=== PATIENT | female | born 1985 | race Caucasian/White ===

== ENCOUNTER → 2017-08-01 | Outpatient (CLI) | payer MEDICAID ==
[2017-08-01 15:37] VITALS: BP 115/91; PULSE 90; RESP 16; TEMP 98.1; BMI 33.3
--- NOTE | 2017-08-01 16:23 | P.HPBAR ---
Bariatric H&P - History & Physicial H&P Date: 08/01/17 History & Physicial: Visit/CC: talk about band removal Patient initial contact: Initial weight: 102.058 kg Initial weight in pounds: 225.00 Height: 5 ft 3 in Initial BMI: 39.8 Last weight: Current weight: 85.417 kg Current weight in pounds: 188.00 Current BMI: 33.3 [place] body weight (based on NIH guidelines): 52.163 kg Excess body weight loss: 33.6% The patient is a 31 year-old F who presents for Bariatric Assessment. Patient seen in the office for the first time today. She actually had her lap band placed by Dr. Hilario in 2008. Postoperatively she developed a pulmonary embolism. 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 She was on Coumadin for 6 months following that. She did well following that. 3-4 years ago she was having left upper quadrant and left shoulder pain. CAT scan showed her lap band tubing to be somewhat atypical in location beneath the left hemidiaphragm. She then underwent a laparoscopic revision with repositioning of her lap band tubing by Dr. Salter. That did resolve her abdominal pain. 2 years ago or so she started noticing diminishing restriction. She believes she has a 10 mL band. She was told she had 9.6 mL in her band. Workup at that time included an upper endoscopy which she states was normal. This was performed by Dr. Hilario back at [facility]. Her last visit at [facility] approximately one year ago. Her preoperative weight prior to lap band placement was 250. She says that she was down around 142-3 years ago. Currently her weight is around 195. Today's weight 188. She feels very little restriction at this point. She has bad reflux at this point. No vomiting. Denies night cough. Able to eat most things. No abdominal pain. She takes Zantac 150 twice a day currently. No recent esophagram. Review of Systems The patient denies any acute changes in vision or hearing, no dysphagia or odynophagia, no chest pain or shortness of breath, no dysuria or hematuria, no headache, no runny nose, no rectal bleeding or melena, no unexplained weight loss Past Medical History Past Medical History: No Reported History, Blood Disorder, Pulmonary Embolus (PE ) Additional Past Medical History / Comment(s): 2008 following lap band surgery MTHFR History of Any Multi-Drug Resistant Organisms: None Reported Past Surgical History: Bariatric Surgery Additional Past Surgical History / Comment(s): lap band surgery 2009 revision of port 2011 Past Anesthesia/Blood Transfusion Reactions: No Reported Reaction Past Psychological History: No Psychological Hx Reported Smoking Status: Never smoker Past Alcohol Use History: None Reported Past Drug Use History: None Reported Surgical - Exam Vital Signs Temp Pulse Resp BP 98.1 F 90 16 115/91 08/01/17 15:33 08/01/17 15:33 08/01/17 15:33 08/01/17 15:33 Physical exam: General: Well-developed, well-nourished HEENT: Normocephalic, sclerae nonicteric Abdomen: Nontender, nondistended Extremities: No edema Neuro: Alert and oriented Bariatric Assessment & Plan (1) Obesity (BMI 30-39.9) Narrative/Plan: Patient with complaints of worsening reflux and diminished restriction post lap band. We'll check esophagogram at this time. Patient considering band conversion. We spent a lot of time today discussing the options of band removal , band conversion to either gastric bypass or sleeve gastrectomy, or reinitiating band fills. Obviously this decision will be affected by the upcoming esophagogram. We'll see the patient back in the office in 1-2 weeks to review that study and make further plans. Status: Acute Bariatric Checklist Checklist: Plan: Checklist: EGD: 1. Hiatal hernia: 2. H. Pylori: HgbA1c: Vitamin D: Smoking: Never smoker Primary care physician referral: Psychiatry clearance: Cardiology clearance: Sleep study: Diet journal: VTE risk score: VTE risk level: Rehab needs at discharge:
== END | disposition home or self-care (01) ==
LOC: BARWHC3 15:23
PROVIDERS: ATTEND Surgery
DX: Z48.815 Encounter for surgical aftercare following surgery on the digestive system (principal); E66.9 Obesity, unspecified; K21.9 Gastro-esophageal reflux disease without esophagitis; Z98.84 Bariatric surgery status; Z79.899 Other long term (current) drug therapy; Z68.33 Body mass index [BMI] 33.0-33.9, adult
CPT/HCPCS: 99201

== ENCOUNTER → 2017-08-14 | Outpatient (CLI) | payer MEDICAID ==
--- NOTE | 2017-08-14 10:11 | FL ---
EXAMINATION TYPE: FL barium swallow DATE OF EXAM: 08/14/2017 LAP BANDING LIMITED ESOPHAGRAM: CLINICAL HISTORY: History of lap band placed 10 years ago with dysphagia per order. Patient wants la p band removed. TECHNIQUE: Limited esophagram is performed utilizing 2-3 oz of barium. A total of 30 seconds of fluo roscopic time was utilized during procedure. Preprocedure imaging was performed. 8 spot images were s aved during procedure. COMPARISON: None. FINDINGS: Pre-procedure prosthetic aides teacher image shows lap band in satisfactory position in proximal stomach ju st below the gastroesophageal junction. Phi angle is elevated from normal range. No priors are avail able for comparison. The patient then drank oral contrast. There is good flow of contrast along the course of the esophagu s. There is good flow of contrast along the course of the lap band, there is no evidence of contrast extravasation to suggest leak. There is no lap band slippage appreciated. IMPRESSION: No evidence of lap band slippage or significant obstruction.
== END | disposition home or self-care (01) ==
LOC: RADFLWHC 08:44
PROVIDERS: ATTEND Surgery
DX: R13.10 Dysphagia, unspecified (principal); Z98.84 Bariatric surgery status
CPT/HCPCS: 74220

== ENCOUNTER → 2017-08-22 | Outpatient (CLI) | payer MEDICAID ==
--- NOTE | 2017-08-22 13:35 | P.BASOAP ---
Subjective Progress Note Date: 08/22/17 Principal diagnosis: Morbid obesity Patient seen back in the office today. She had her barium swallowormed last week. That study was normal. Still with some reflux symptoms intermittently. Options discussed. We'll proceed with band adjustment. Objective - Exam Abdomen: Soft, nontender, nondistended Assessment/Plan (1) Obesity (BMI 30-39.9) Narrative/Plan: We'll access port to evaluate whether the patient has any malfunction of the lap band system. The patient's lap band port was palpated. The site was aseptically prepped. The Ames needle was advanced into the port. Aspiration took place. At least 6 mL was present within the port. I chose not to empty the port any further given the risk of edema with emptying the band and then refilling. A total of 0.5 ml of fluid was added for anticipated volume of 10.1 mL. Pressure was held and a sterile dressing was applied. Follow-up 1 month Plan: Date: Initial Weight: 102.058 kg Initial BMI: Current Weight: Current BMI: Type of Surgery: Total Volume in Band: Previous Volume: Volume Removed: Volume Added: Band Size:
[2017-08-22 13:40] VITALS: BMI 31.8
== END | disposition home or self-care (01) ==
LOC: BARWHC3 13:11
PROVIDERS: ATTEND Surgery
DX: E66.01 Morbid (severe) obesity due to excess calories (principal); K21.9 Gastro-esophageal reflux disease without esophagitis; Z68.30 Body mass index [BMI] 30.0-30.9, adult
CPT/HCPCS: 99212

== ENCOUNTER → 2018-02-09 | Outpatient (CLI) | payer MEDICAID ==
--- NOTE | 2018-02-09 10:44 | P.BASOAP ---
Subjective Progress Note Date: 02/09/18 Principal diagnosis: Morbid obesity Patient here today to have her band adjusted. She feels her band is too tight for solid foods. She would like the 0.5 mL removed that was placed in August of this year. Currently has a total of 10.1 mL. No vomiting. Objective - Exam Abdomen: Soft, nontender, nondistended Assessment/Plan (1) Obesity (BMI 30-39.9) Narrative/Plan: Will loosen the patient's plan at this time.The patient's lap band port was palpated. The site was aseptically prepped. 1% lidocaine was infiltrated into the subcutaneous tissues through a diabetic syringe. The Ames needle was advanced into the port. Aspiration took place. A total of 0.5 ml of fluid was evacuated. Pressure was held and a sterile dressing was applied. Plan: Date: Initial Weight: 102.058 kg Initial BMI: Current Weight: Current BMI: Type of Surgery: Total Volume in Band: 10.1 Previous Volume: Volume Removed: Volume Added: Band Size:
[2018-02-09 11:22] VITALS: BP 128/86; PULSE 96; RESP 15; TEMP 98.3; BMI 32.8
== END | disposition home or self-care (01) ==
LOC: BARWHC3 09:57
PROVIDERS: ATTEND Surgery
DX: Z46.51 Encounter for fitting and adjustment of gastric lap band (principal); E66.01 Morbid (severe) obesity due to excess calories; Z68.30 Body mass index [BMI] 30.0-30.9, adult; Z98.84 Bariatric surgery status
CPT/HCPCS: 99212

== ENCOUNTER → 2018-05-25 | Outpatient (CLI) | payer MEDICAID ==
[2018-05-25 08:56] LABS: Basophils % (A) 1 %; Eosinophils # (A) 0.1 k/uL (0-0.7); Eosinophils % (A) 2 %; HCT 41.6 % (34.0-46.0); HGB 13.4 gm/dL (11.4-16.0); Lymphocytes # (A) 1.6 k/uL (1.0-4.8); Lymphocytes % (A) 38 %; MCH 31.2 pg (25.0-35.0); MCHC 32.3 g/dL (31.0-37.0); MCV 96.9 fL (80.0-100.0); Mean Platelet Volume 6.8; Monocytes # (A) 0.3 k/uL (0-1.0); Monocytes % (A) 7 %; Neutrophils # (A) 2.1 k/uL (1.3-7.7); Neutrophils % (A) 51 %; Platelet Count 292 k/uL (150-450); RDW 12.2 % (11.5-15.5); WBC 4.2 k/uL (3.8-10.6)
[2018-05-25 16:24] LABS: Albumin 4.4 g/dL (3.80-4.90); Albumin/Globulin Ratio 2.59 (1.20-2.10); Anion Gap 5.2 mmol/L (4.00-12.00); Carbon Dioxide 27.8 mmol/L (21.6-31.8); Globulin 1.7 g/dL (2.1-3.7); LDL Cholesterol,Calculated 79.2 mg/dL (0.0-131.0); Potassium 4.3 mmol/L (3.5-5.5); Total Bilirubin 0.8 mg/dL (0.2-1.2); Total Protein 6.1 g/dL (6.2-8.2); VLDL Calculation 10.8 mg/dL (5.00-40.00)
[2018-05-25 16:32] LABS: T4, Free (Free Thyroxine) 1.3 ng/dL (0.80-1.80)
== END | disposition home or self-care (01) ==
LOC: LABWHC1 08:25
PROVIDERS: ATTEND Nurse Practitioner Family
DX: Z00.00 Encounter for general adult medical examination without abnormal findings (principal); E55.9 Vitamin D deficiency, unspecified
CPT/HCPCS: 36415; 80053; 80061; 82306; 82607; 84439; 84443; 85025

== ENCOUNTER → 2018-09-14 | Outpatient (CLI) | payer MEDICAID ==
[2018-09-14 10:43] VITALS: BP 123/91; PULSE 112; TEMP 98.3; BMI 35.2
--- NOTE | 2018-09-14 11:51 | P.HPBAR ---
Bariatric H&P - History & Physicial H&P Date: 09/14/18 History & Physicial: Visit/CC: initial consult Patient initial contact: Initial weight: 102.058 kg Initial weight in pounds: 225.00 Height: 5 ft 6 in Initial BMI: 36.3 Last weight: Current weight: 98.883 kg Current weight in pounds: 218.00 Current BMI: 35.2 [place] body weight (based on NIH guidelines): 58.967 kg Excess body weight loss: 7.3% The patient is a 32 year-old F who presents for Bariatric Assessment. Patient presents with history of adjustable gastric band. Highest weight of 250 pounds. She reports developing intolerance to band adjustments. Weight currently stable at 210. She does reports gastroesophageal reflux disease where she needs chronic in essence as well. Recommend full bariatric bariatric metabolic panel. Also recommend esophagram upper endoscopy for severe gastroparesis after reflux disease. Alternatives including sleeve and bite gastric bypass described. Patient is at increased risk for leaks and complications secondary to previous history of adjustable gastric band including intolerance. On exam, abdomen soft nontender. No erythema along port site. Recommend continued my fitness PAl and caloric including exercise assessment. Past Medical History Past Medical History: No Reported History, Blood Disorder, Pulmonary Embolus (PE) Additional Past Medical History / Comment(s): 2009 following lap band surgery MTHFR History of Any Multi-Drug Resistant Organisms: None Reported Past Surgical History: Bariatric Surgery Additional Past Surgical History / Comment(s): lap band surgery 2008 revision of port 2011 Past Anesthesia/Blood Transfusion Reactions: No Reported Reaction Past Psychological History: No Psychological Hx Reported Smoking Status: Never smoker Past Alcohol Use History: None Reported Past Drug Use History: None Reported Surgical - Exam Vital Signs Temp Pulse BP 98.3 F 112 H 123/91 09/14/18 10:40 09/14/18 10:40 09/14/18 10:40 Bariatric Checklist Checklist: Plan: Checklist: EGD: 1. Hiatal hernia: 2. H. Pylori: HgbA1c: Vitamin D: Smoking: Never smoker Primary care physician referral: Linus Harding Psychiatry clearance: Cardiology clearance: Sleep study: Diet journal: VTE risk score: VTE risk level: Rehab needs at discharge:
== END ==
LOC: BARWHC3 09:56
PROVIDERS: ATTEND Surgery Plastic and Reconstructive Surgery
DX: Z48.815 Encounter for surgical aftercare following surgery on the digestive system (principal); K21.9 Gastro-esophageal reflux disease without esophagitis; Z98.84 Bariatric surgery status
CPT/HCPCS: 99211

== ENCOUNTER → 2018-09-27 | Outpatient (CLI) | payer MEDICAID ==
--- NOTE | 2018-09-27 12:41 | FL ---
EXAMINATION TYPE: FL barium swallow DATE OF EXAM: 09/27/2018 CLINICAL HISTORY: Lap band placement. Gastroesophageal reflux. TECHNIQUE: Single contrast esophagram was performed utilizing thin barium only. 1.14 minutes of fluor oscopy time was utilized with 33 images saved. COMPARISON: None. FINDINGS: The lap band is in satisfactory position in proximal stomach just below the gastroesophage al junction. The patient then drank oral contrast. There is good flow of contrast along the course of the esophagus. There is good flow of contrast along the course of the lap band, there is no evidenc e of contrast extravasation to suggest leak. There is no significant gastric prolapse appreciated. M ild gastroesophageal reflux to the level of distal third of the esophagus was seen on supine imaging. No hiatal hernia. IMPRESSION: 1. No evidence of gastric lap band prolapse or obstruction. 2. Mild gastroesophageal reflux in the gravity independent position.
== END | disposition home or self-care (01) ==
LOC: RADFLWHC 11:18
PROVIDERS: ATTEND Surgery Plastic and Reconstructive Surgery
DX: K21.9 Gastro-esophageal reflux disease without esophagitis (principal)
CPT/HCPCS: 74220

== ENCOUNTER → 2018-10-31 | Outpatient (CLI) | payer MEDICAID ==
[2018-10-31 11:18] LABS: HGB 13.6 gm/dL (11.4-16.0); MCH 30.9 pg (25.0-35.0); MCHC 32.4 g/dL (31.0-37.0); MCV 95.1 fL (80.0-100.0); Mean Platelet Volume 6.7; Platelet Count 308 k/uL (150-450); RBC 4.42 m/uL (3.80-5.40); RDW 12.4 % (11.5-15.5)
[2018-10-31 11:36] LABS: Partial Thromboplastin Time 24.4 sec (22.0-30.0); Prothrombin Time 10.3 sec (9.0-12.0)
[2018-10-31 16:29] LABS: Iron Saturation 47.08 (12.00-45.00)
[2018-10-31 16:37] LABS: Vitamin D 25 Hydroxy 18.2 ng/mL (30.0-100.0)
[2018-10-31 17:00] LABS: Albumin 4.4 g/dL (3.80-4.90); Albumin/Globulin Ratio 2.32 (1.60-3.17); Anion Gap 7.1 mmol/L (4.00-12.00); Carbon Dioxide 26.9 mmol/L (21.6-31.8); Folate, Serum 10.4 ng/mL; Globulin 1.9 g/dL (1.6-3.3); LDL Cholesterol,Calculated 89.8 mg/dL (0.0-131.0); Phosphorus 3.4 mg/dL (2.4-5.1); Potassium 4.2 mmol/L (3.5-5.5); Total Bilirubin 0.5 mg/dL (0.3-1.2); Total Protein 6.3 g/dL (6.2-8.2); VLDL Calculation 21.2 mg/dL (5.00-40.00)
[2018-10-31 17:10] LABS: Parathyroid Hormone Intact 45.3 pg/mL (14.0-72.0)
[2018-11-01 13:44] LABS: Zinc, Serum 65 ug/dL (60-130)
[2018-11-02 08:02] LABS: Vit B1(Thiamine) 72 ug/L (38-122)
[2018-11-03 22:15] LABS: Selenium 166 mcg/L (63-160)
== END | disposition home or self-care (01) ==
LOC: LABWHC1 10:19
PROVIDERS: ATTEND Surgery Plastic and Reconstructive Surgery
DX: Z01.818 Encounter for other preprocedural examination (principal); Z01.812 Encounter for preprocedural laboratory examination; E66.01 Morbid (severe) obesity due to excess calories; E21.1 Secondary hyperparathyroidism, not elsewhere classified; E89.1 Postprocedural hypoinsulinemia; D50.9 Iron deficiency anemia, unspecified; K90.9 Intestinal malabsorption, unspecified; E55.9 Vitamin D deficiency, unspecified; K74.1 Hepatic sclerosis; N19 Unspecified kidney failure; K50.90 Crohn's disease, unspecified, without complications
CPT/HCPCS: 36415; 80053; 80061; 82306; 82525; 82607; 82728; 82746; 83036; 83540; 83550; 83735; 83970; 84100; 84134; 84255; 84425; 84443; 84590; 84630; 85027; 85610; 85730; 93005

== ENCOUNTER 2019-01-04 14:22 | Day surgery (SDC) | payer MEDICAID ==
[2019-01-01 15:23] VITALS: BMI 38.7
--- NOTE | 2019-01-04 06:32 | P.GSHP ---
History of Present Illness H&P Date: 01/04/19 CHIEF COMPLAINT: GERD HISTORY OF PRESENT ILLNESS: The patient is a 33-year-old female who presents reports gastroesophageal reflux disease. Upper endoscopy was offered for further evaluation and management. PAST MEDICAL HISTORY: Please see list. PAST SURGICAL HISTORY: Please see list. MEDICATIONS: Please see list. ALLERGIES: Please see list. SOCIAL HISTORY: No illicit drug use FAMILY HISTORY: No reports of Crohn disease or ulcerative colitis. REVIEW OF ORGAN SYSTEMS: CONSTITUTIONAL: No reports of fevers or chills. GI: Denies any blood in stools or constipation. PHYSICAL EXAM: VITAL SIGNS: Stable GENERAL: Well-developed and pleasant in no acute distress. HEENT: No scleral icterus. Extraocular movements grossly intact. Moist buccal mucosa. NECK: Supple without lymphadenopathy. CHEST: Unlabored respirations. Equal bilateral excursions. CARDIOVASCULAR: Regular rate and rhythm. Distal 2+ pulses. ABDOMEN: Soft, nondistended. MUSCULOSKELETAL: No clubbing, cyanosis, or edema. ASSESSMENT: 1. Gastroesophageal reflux disease PLAN: 1. Recommend proceeding with an upper endoscopy Past Medical History Past Medical History: Blood Disorder, Pulmonary Embolus (PE) Additional Past Medical History / Comment(s): 2009 following lap band surgery MTHFR History of Any Multi-Drug Resistant Organisms: None Reported Past Surgical History: Bariatric Surgery Additional Past Surgical History / Comment(s): lap band surgery 2009 revision of port 2011 Past Anesthesia/Blood Transfusion Reactions: No Reported Reaction Smoking Status: Never smoker - Past Family History Mother Family Medical History: Deep Vein Thrombosis (DVT) Medications and Allergies Home Medications Medication Instructions Recorded Confirmed Type Dextroamphetamine/Amphetamine 20 mg PO BID 09/14/18 01/01/19 History [Adderall] Allergies Allergy/AdvReac Type Severity Reaction Status Date / Time No Known Allergies Allergy Verified 01/01/19 15:19
[~2019-01-04 14:22] MED LIST: LACTATED RINGERS 1,000 ML IV SCH
[2019-01-04 14:49] VITALS: RESP 16; TEMP 98.7
[2019-01-04] MEDS ORDERED: LIDOCAINE 1% 20 ML VIAL (10MG/ML) FOR IV START INTRADERMA ONE (14:52)
[2019-01-04] MEDS ORDERED: LIDOCAINE 1% INJ 10MG/ML (20 ML MDV) ONE (15:02)
[2019-01-04] MEDS ORDERED: PROPOFOL 10 MG/ML 20 ML VIAL IV ONE (15:02)
--- NOTE | 2019-01-04 15:39 | P.PCN ---
Date of Procedure: 01/04/19 Description of Procedure: PREOPERATIVE DIAGNOSIS: Gastroesophageal reflux disease. Morbid obesity. POSTOPERATIVE DIAGNOSIS: Morbid obesity. Gastritis. Gastroesophageal reflux disease. OPERATION: Esophagogastroduodenoscopy with biopsies along antrum. SURGEON: Vannesa Lord MD ANESTHESIA: MAC. INDICATIONS: The patient is a 33-year-old female who presents with a history of reflux disease. Benefits and risks of the procedure were described. Informed consent was obtained. DESCRIPTION: The patient was brought into the endoscopy suite and laid in the left lateral decubitus position. An Olympus gastroscope was passed along the posterior oropharynx down to the distal esophagus where the squamocolumnar junction was encountered at 40 cm from the incisors. The stomach was entered and no bile reflux was found. Additional findings are listed below. Biopsies with cold forceps were obtained of the antrum. The first through third portion of the duodenum was examined and unremarkable. Retroflexion of the scope confirmed Hill grade 1 lower esophageal valve. The squamocolumnar junction demonstrated no LA grade A erosive esophagitis. The stomach was desufflated. The patient tolerated the procedure well. FINDINGS: Squamocolumnar junction 40 cm from the incisors. Diaphragmatic hiatus at 40 cm. Hill grade 1 lower esophageal valve. No LA grade A erosive esophagitis. No active duodenitis. Minimal chronic gastritis RECOMMENDATIONS: Upper endoscopy as needed. Plan - Discharge Summary Discharge Rx Participant: Yes New Discharge Prescriptions: No Action Dextroamphetamine/Amphetamine [Adderall] 20 mg PO BID Discharge Medication List Dextroamphetamine/Amphetamine [Adderall] 20 mg PO BID 09/14/18 [History] Follow up Appointment(s)/Referral(s): [facility] [[facility]-STAFF] - 01/23/19 Patient Instructions/Handouts: Gastritis (DC) Discharge Disposition: HOME SELF-CARE
[2019-01-04 15:46] VITALS: BP 117/83; PULSE 75
== END 2019-01-04 15:58 | disposition home or self-care (01) ==
LOC: ORWHC2ENDO 14:22
PROVIDERS: ATTEND Surgery Plastic and Reconstructive Surgery
DX: K21.9 Gastro-esophageal reflux disease without esophagitis (principal); K29.50 Unspecified chronic gastritis without bleeding; E66.01 Morbid (severe) obesity due to excess calories; Z68.38 Body mass index [BMI] 38.0-38.9, adult; Z98.84 Bariatric surgery status; Z86.711 Personal history of pulmonary embolism; Z79.899 Other long term (current) drug therapy
CPT/HCPCS: 81025; 88305; 43239; J2001; J2704

== ENCOUNTER → 2019-01-23 | Outpatient (CLI) | payer MEDICAID ==
--- NOTE | 2019-01-23 14:23 | P.PN ---
Subjective Progress Note Date: 01/23/19 HPI: She reports severe right knee pain requiring knee brace and uncontrolled pain. She has persistent tachycardia. She has intolerance to band adjustments requiring removal of fluid from the band. She was 246 pounds. Cut back on coffee and increase water. ABDOMEN: Unremarkable ASSESSMENT: 1. Complications from adjustable gastric band intolerance 2. Supraventricular ventricular tachycardia PLAN: 1. Sleep study assessment advised 2. Referral to remote sensing technician
[2019-01-23 14:32] VITALS: BP 118/86; PULSE 120; TEMP 98.4; BMI 38.2
== END | disposition home or self-care (01) ==
LOC: BARWHC3 14:02
PROVIDERS: ATTEND Surgery Plastic and Reconstructive Surgery
DX: K95.09 Other complications of gastric band procedure (principal); I47.1 Supraventricular tachycardia
CPT/HCPCS: 99211

== ENCOUNTER → 2019-02-27 | Outpatient (CLI) | payer MEDICAID ==
[2019-02-27 14:07] VITALS: BP 130/88; PULSE 72; TEMP 98.6; BMI 36.3
--- NOTE | 2019-02-27 14:47 | P.PN ---
Subjective Progress Note Date: 02/27/19 DATE OF SERVICE: 02/27/2019 REASON FOR VISIT: Bariatric evaluation HISTORY OF PRESENT ILLNESS: Janie Baker is a 33-year-old female who presents with history of adjustable gastric band over 6+ years ago. Her highest weight was 250 pounds. She was 246 pounds January 14 and now is 225 pounds. She has lost over 20 pounds in 2 months. She denies any GERD. She has intolerance to adjustment of her band and has over 7 mL in her band. No reports of nausea or vomiting. At height of 5 feet 6 inches, her ideal body weight is 154 pounds. She comes in 225 pounds from 236 pounds in 1 month. She has lost 12 pounds in 1 month. Her highest weight was 250 pounds. Her body mass index highest was 40.4. Today her BMI is 36.3. She is 71 pounds overweight. He total lifetime weight loss is 25 pounds. PHYSICAL EXAM: VITAL SIGNS: Height 5 foot 6.5 inches, weight 225 pounds. BMI 35.8 Vital Signs Temp 98.6 F 02/27/19 14:02 Pulse 72 02/27/19 14:02 Resp BP 130/88 02/27/19 14:02 Pulse Ox GENERAL: Well-developed in no acute distress. HEENT: No scleral icterus. Extraocular movements grossly intact. Hears conversational speech. No nasal drainage. NECK: Supple without lymphadenopathy. CHEST: Nonlabored respirations with equal bilateral excursions. CARDIOVASCULAR: Regular rate and rhythm. Distal 2+ pulses. ABDOMEN: Obese, soft, nontender, nondistended. MUSCULOSKELETAL: No clubbing, cyanosis. Gross strength 5/5 distal lower extremities. NEURO: No focal or lateralizing signs. Cranial nerves 2 through 12 grossly within normal limits. PSYCH: Appropriate affect. Alert and oriented to person, place and time. SKIN: Good skin turgor. Well perfused. ASSESSMENT: 1. Morbid obesity due to excess calories 2. Body mass index of 40.4 to 35.8 3. Gastroesophageal reflux disease 4. Blood clotting disorder 5. Pulmonary embolism 6. ADHD 7. History of adjustable gastric band 8. Abnormal EKG 9. Tachycardia 10. 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 Supraventricular ventricular tachycardia 12. Dietary surveillance and counseling PLAN: 1. She is doing very well with her dietary changes 2. Follow up in 1 month. Objective - Vital Signs Vital signs: Vital Signs Temp 98.6 F 02/27/19 14:02 Pulse 72 02/27/19 14:02 Resp BP 130/88 02/27/19 14:02 Pulse Ox Intake & Output 02/26/19 02/27/19 02/27/19 18:59 06:59 18:59 Weight 102.058 kg
== END | disposition home or self-care (01) ==
LOC: BARWHC3 13:58
PROVIDERS: ATTEND Surgery Plastic and Reconstructive Surgery
DX: Z48.815 Encounter for surgical aftercare following surgery on the digestive system (principal); K95.09 Other complications of gastric band procedure; E66.01 Morbid (severe) obesity due to excess calories; K21.9 Gastro-esophageal reflux disease without esophagitis; D68.9 Coagulation defect, unspecified; I26.99 Other pulmonary embolism without acute cor pulmonale; F90.9 Attention-deficit hyperactivity disorder, unspecified type; I47.2 Ventricular tachycardia; R94.31 Abnormal electrocardiogram [ECG] [EKG]; Z71.3 Dietary counseling and surveillance; Z68.35 Body mass index [BMI] 35.0-35.9, adult; Z98.84 Bariatric surgery status
CPT/HCPCS: 99211

== ENCOUNTER → 2019-03-27 | Outpatient (CLI) | payer MEDICAID ==
--- NOTE | 2019-03-27 15:29 | P.PN ---
Subjective Progress Note Date: 03/27/19 DATE OF SERVICE: 03/27/2019 CHIEF COMPLAINT: Morbid obesity HISTORY OF PRESENT ILLNESS: Janie Baker is a 33-year-old female who presents with history of adjustable gastric band over 6+ years ago. Her highest weight was 250 pounds. She is feeling well. She is completing medical supervised wieight loss on a prepared food meal plan. At height of 5 feet 6 inches, her ideal body weight is 154 pounds. She comes in 219 pounds from 225 pounds in 1 month. She has lost 6 pounds in 1 month. Her highest weight was 250 pounds. Her body mass index highest was 40.4. Today her BMI is 35.3. Total lifetime weight loss of 31 pounds. She is 65 pounds overweight. PHYSICAL EXAM: VITAL SIGNS: Height 5 foot 6 inches, weight 219 pounds. BMI 35.3 Vital Signs Temp 98.1 F 03/27/19 15:48 Pulse 91 03/27/19 15:48 Resp BP 128/83 03/27/19 15:48 Pulse Ox GENERAL: Well-developed in no acute distress. HEENT: No scleral icterus. Extraocular movements grossly intact. Hears conversational speech. No nasal drainage. NECK: Supple without lymphadenopathy. CHEST: Nonlabored respirations with equal bilateral excursions. CARDIOVASCULAR: Regular rate and rhythm. Distal 2+ pulses. ABDOMEN: Obese, soft, nontender, nondistended. MUSCULOSKELETAL: No clubbing, cyanosis. NEURO: No focal or lateralizing signs. Cranial nerves 2 through 12 grossly within normal limits. PSYCH: Appropriate affect. Alert and oriented to person, place and time. SKIN: Good skin turgor. Well perfused. EKG: Abnormal with possible anterior infarct ASSESSMENT: 1. Morbid obesity due to excess calories 2. Body mass index of 40.4 to 35.3 3. Gastroesophageal reflux disease 4. Blood clotting disorder 5. Pulmonary embolism 6. ADHD 7. History of adjustable gastric band 8. Abnormal EKG 9. Tachycardia 10. 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 Supraventricular ventricular tachycardia 12. Dietary surveillance and counseling 13. Abnormal EKG PLAN: 1. Referral to yarn hauler, Dr. Campuzano for abnormal EKG 2. Continue with weight loss for dietary surveillance and counseling
[2019-03-27 15:59] VITALS: BP 128/83; PULSE 91; TEMP 98.1; BMI 35.3
== END | disposition home or self-care (01) ==
LOC: BARWHC3 15:29
PROVIDERS: ATTEND Surgery Plastic and Reconstructive Surgery
DX: E66.01 Morbid (severe) obesity due to excess calories (principal); K21.9 Gastro-esophageal reflux disease without esophagitis; D75.89 Other specified diseases of blood and blood-forming organs; I26.99 Other pulmonary embolism without acute cor pulmonale; F90.9 Attention-deficit hyperactivity disorder, unspecified type; R94.31 Abnormal electrocardiogram [ECG] [EKG]; R00.0 Tachycardia, unspecified; K95.89 Other complications of other bariatric procedure; I47.2 Ventricular tachycardia; Z71.3 Dietary counseling and surveillance; Z68.35 Body mass index [BMI] 35.0-35.9, adult; Z98.84 Bariatric surgery status
CPT/HCPCS: 99211

== ENCOUNTER → 2019-05-08 | Outpatient (CLI) | payer MEDICAID ==
--- NOTE | 2019-05-08 13:20 | P.PN ---
Subjective Progress Note Date: 05/08/19 DATE OF SERVICE: 05/08/2019 CHIEF COMPLAINT: Morbid obesity HISTORY OF PRESENT ILLNESS: Janie Baker is a 33-year-old female who presents with history of adjustable gastric band over 6+ years ago. Her highest weight was 250 pounds. She is doing well. She had weight loss of 47 pounds in 3+ months on Optivia. She is taking her multivitamins and tolerating diet. Her goal weight loss 160 pounds. At height of 5 feet 6 inches, her ideal body weight is 154 pounds. She comes in 199 pounds from 219 pounds in 1 month. She has lost 20 pounds in 1 month. Her highest weight was 250 pounds. Her body mass index highest was 40.4. Today her BMI is 32.1. Total lifetime weight loss of 51 pounds. She is 45 pounds overweight. Lifetime percent excess weight loss of 54%. PHYSICAL EXAM: VITAL SIGNS: Height 5 foot 6 inches, weight 199 pounds. BMI 32.1 Vital Signs Temp 98.2 F 05/08/19 14:47 Pulse 80 05/08/19 14:47 Resp BP 134/96 05/08/19 14:47 Pulse Ox GENERAL: Well-developed in no acute distress. HEENT: No scleral icterus. Extraocular movements grossly intact. Hears conversational speech. No nasal drainage. NECK: Supple without lymphadenopathy. CHEST: Nonlabored respirations with equal bilateral excursions. CARDIOVASCULAR: Regular rate and rhythm. Distal 2+ pulses. ABDOMEN: Obese, soft, nontender, nondistended. MUSCULOSKELETAL: No clubbing, cyanosis. NEURO: No focal or lateralizing signs. Cranial nerves 2 through 12 grossly within normal limits. PSYCH: Appropriate affect. Alert and oriented to person, place and time. SKIN: Good skin turgor. Well perfused. ASSESSMENT: 1. Morbid obesity due to excess calories 2. Body mass index of 40.4 to 32.1 3. Gastroesophageal reflux disease 4. Blood clotting disorder 5. Pulmonary embolism 6. ADHD 7. History of adjustable gastric band 8. Abnormal EKG 9. Tachycardia 10. 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 Supraventricular ventricular tachycardia 12. Dietary surveillance and counseling 13. Abnormal EKG PLAN: 1. Continue with weight loss for dietary surveillance and counseling
[2019-05-08 14:50] VITALS: BP 134/96; PULSE 80; TEMP 98.2; BMI 32.1
== END | disposition home or self-care (01) ==
LOC: BARWHC3 14:25
PROVIDERS: ATTEND Surgery Plastic and Reconstructive Surgery
DX: Z48.815 Encounter for surgical aftercare following surgery on the digestive system (principal); E66.01 Morbid (severe) obesity due to excess calories; K21.9 Gastro-esophageal reflux disease without esophagitis; I26.99 Other pulmonary embolism without acute cor pulmonale; F90.9 Attention-deficit hyperactivity disorder, unspecified type; R94.31 Abnormal electrocardiogram [ECG] [EKG]; K95.09 Other complications of gastric band procedure; I47.1 Supraventricular tachycardia; Z71.3 Dietary counseling and surveillance; Z68.32 Body mass index [BMI] 32.0-32.9, adult; Z98.84 Bariatric surgery status
CPT/HCPCS: 99211

== ENCOUNTER → 2019-05-16 | Outpatient (CLI) | payer MEDICAID ==
--- NOTE | 2019-05-16 11:56 | US ---
EXAMINATION TYPE: US gallbladder DATE OF EXAM: 05/16/2019 COMPARISON: 09/09/11 CLINICAL HISTORY: Abd Pain. Pt states h/o lap band, having recent weight loss of 50 lbs in last few m onths and ABD pain x 2 days EXAM MEASUREMENTS: Liver Length: 13.9 cm Gallbladder Wall: 0.2 cm CBD: 0.3 cm Right Kidney: 9.4 x 4.0 x 4.9 cm Pancreas: wnl, tail obscured by overlying bowel gas Liver: wnl Gallbladder: wnl, bowel gas/duodenum near posterior aspect of GB Evidence for sonographic James's sign: No CBD: wnl Right Kidney: wnl, lower pole gassed out IMPRESSION: Unremarkable abdominal ultrasound. Gallbladder appears within normal limits without sonog raphic evidence of cholelithiasis nor acute cholecystitis.
== END | disposition home or self-care (01) ==
LOC: RADUSWWP 11:00
PROVIDERS: ATTEND Surgery
DX: R10.9 Unspecified abdominal pain (principal)
CPT/HCPCS: 76705

== ENCOUNTER → 2019-06-05 | Outpatient (CLI) | payer MEDICAID ==
[2019-06-05 09:46] VITALS: BP 121/81; PULSE 120; TEMP 98.2; BMI 30.8
--- NOTE | 2019-06-05 15:51 | P.PN ---
Subjective Progress Note Date: 06/05/19 DATE OF SERVICE: 06/05/2019 CHIEF COMPLAINT: Morbid obesity HISTORY OF PRESENT ILLNESS: Janie Baker is a 33-year-old female who presents with history of adjustable gastric band over 6+ years ago. Her highest weight was 250 pounds. She is doing Optivia for weight loss. She had right upper quadrant abdominal pain. She continues to lose weight and is doing well. At height of 5 feet 6 inches, her ideal body weight is 154 pounds. She comes in 191 pounds from 199 pounds 1 month. She has lost 8 pounds in 1 month. Her highest weight was 250 pounds. Her body mass index highest was 40.4. Today her BMI is 30.8. Total lifetime weight loss of 59 pounds. She is 37 pounds overweight. Lifetime percent excess weight loss of 62%. PHYSICAL EXAM: VITAL SIGNS: Height 5 foot 6 inches, weight 191 pounds. BMI 30.8 Vital Signs Temp 98.2 F 06/05/19 09:43 Pulse 120 H 06/05/19 09:43 Resp BP 121/81 06/05/19 09:43 Pulse Ox GENERAL: Well-developed in no acute distress. HEENT: No scleral icterus. Extraocular movements grossly intact. Hears conversational speech. No nasal drainage. NECK: Supple without lymphadenopathy. CHEST: Nonlabored respirations with equal bilateral excursions. CARDIOVASCULAR: Tachycardic. Distal 2+ pulses. ABDOMEN: Obese, soft, nontender, nondistended. MUSCULOSKELETAL: No clubbing, cyanosis. NEURO: No focal or lateralizing signs. Cranial nerves 2 through 12 grossly within normal limits. PSYCH: Appropriate affect. Alert and oriented to person, place and time. SKIN: Good skin turgor. Well perfused. ASSESSMENT: 1. Morbid obesity due to excess calories 2. Body mass index of 40.4 to 30.8 3. Gastroesophageal reflux disease 4. Blood clotting disorder 5. Pulmonary embolism 6. ADHD 7. History of adjustable gastric band 8. Abnormal EKG 9. Tachycardia 10. 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 Supraventricular ventricular tachycardia 12. Dietary surveillance and counseling 13. Abnormal EKG PLAN: 1. Continue with weight loss for dietary surveillance and counseling 2. She has completed 8 months of medical supervised weight loss from September 2018. 3. Recommend cardiac assessment Objective - Vital Signs Vital signs: Vital Signs Temp 98.2 F 06/05/19 09:43 Pulse 120 H 06/05/19 09:43 Resp BP 121/81 06/05/19 09:43 Pulse Ox Intake & Output 06/04/19 06/05/19 06/05/19 18:59 06:59 18:59 Weight 86.636 kg
== END | disposition home or self-care (01) ==
LOC: BARWHC3 09:32
PROVIDERS: ATTEND Surgery Plastic and Reconstructive Surgery
DX: Z48.815 Encounter for surgical aftercare following surgery on the digestive system (principal); E66.01 Morbid (severe) obesity due to excess calories; K21.9 Gastro-esophageal reflux disease without esophagitis; I26.99 Other pulmonary embolism without acute cor pulmonale; F90.9 Attention-deficit hyperactivity disorder, unspecified type; R94.31 Abnormal electrocardiogram [ECG] [EKG]; K95.09 Other complications of gastric band procedure; I47.1 Supraventricular tachycardia; I74.9 Embolism and thrombosis of unspecified artery; Z68.30 Body mass index [BMI] 30.0-30.9, adult; Z71.3 Dietary counseling and surveillance
CPT/HCPCS: 99211

== ENCOUNTER → 2019-08-01 | Outpatient (CLI) | payer MEDICAID ==
[2019-08-01 08:25] LABS: Basophils % (A) 0 %; Eosinophils % (A) 1 %; HCT 42.8 % (34.0-46.0); Lymphocytes # (A) 1.3 k/uL (1.0-4.8); Lymphocytes % (A) 26 %; MCH 32.1 pg (25.0-35.0); MCHC 32.8 g/dL (31.0-37.0); MCV 97.8 fL (80.0-100.0); Mean Platelet Volume 7.3; Monocytes # (A) 0.3 k/uL (0-1.0); Monocytes % (A) 5 %; Neutrophils # (A) 3.2 k/uL (1.3-7.7); Neutrophils % (A) 66 %; Platelet Count 247 k/uL (150-450); RBC 4.37 m/uL (3.80-5.40); RDW 11.9 % (11.5-15.5)
[2019-08-01 16:28] LABS: African American GFR (CKD) 138.8 (60.0-200.0); Albumin 4.3 g/dL (3.80-4.90); Albumin/Globulin Ratio 2.53 (1.60-3.17); Anion Gap 7.8 mmol/L (4.00-12.00); Calcium 8.9 mg/dL (8.7-10.3); Carbon Dioxide 28.2 mmol/L (21.6-31.8); Globulin 1.7 g/dL (1.6-3.3); Non-African American GFR(CKD) 119.8 (60.0-200.0); Potassium 3.6 mmol/L (3.5-5.5); Total Bilirubin 0.3 mg/dL (0.3-1.2)
[2019-08-02 06:59] LABS: EBV-EA (IgG) <0.2 AI; EBV-EBNA(IgG) <0.2 AI; EBV-VCA (IgG) <0.2 AI; EBV-VCA (IgM) <0.2 AI
== END | disposition home or self-care (01) ==
LOC: LABWHC1 08:02
PROVIDERS: ATTEND Nurse Practitioner Family
DX: E55.9 Vitamin D deficiency, unspecified (principal); R50.9 Fever, unspecified
CPT/HCPCS: 36415; 80053; 82306; 85025; 86644; 86645; 86663; 86664; 86665

== ENCOUNTER → 2024-10-09 | Outpatient (CLI) | payer MEDICAID ==
[2024-10-09 14:59] LABS: Basophils # (A) 0.02 X 10*3/uL (0.00-0.10); Basophils % (A) 0.2 %; Eosinophils # (A) 0.01 X 10*3/uL (0.04-0.35); Eosinophils % (A) 0.1 %; HCT 47.3 % (37.2-46.3); HGB 15.8 g/dL (12.0-15.0); Lymphocytes # (A) 2.27 X 10*3/uL (0.90-5.00); Lymphocytes % (A) 17.7 %; MCH 31.8 pg (27.0-32.0); MCHC 33.4 g/dL (32.0-37.0); MCV 95.2 FL (80.0-97.0); Mean Platelet Volume 9.6 FL (9.5-12.2); Monocytes # (A) 0.63 X 10*3/uL (0.20-1.00); Monocytes % (A) 4.9 %; NRBC Per 100 WBC 0 X 10*3/uL (0.00-0.01); Neutrophils # (A) 9.85 X 10*3/uL (1.80-7.70); Neutrophils % (A) 76.6 %; Platelet Count 349 X 10*3/uL (140-440); RBC 4.97 X 10*6/uL (4.10-5.20); RDW 11.8 % (11.5-14.5); WBC 12.84 X 10*3/uL (4.50-10.00)
[2024-10-09 15:28] LABS: % Iron Saturation 56.29 (12.00-45.00); ALT 14 U/L (8-44); AST 21 U/L (13-35); Albumin 4.8 g/dL (3.8-4.9); Albumin/Globulin Ratio 1.78 Ratio (1.60-3.17); Alkaline Phosphatase 70 U/L (41-126); BUN/Creat Ratio 14.86 Ratio (12.00-20.00); Blood Urea Nitrogen 10.4 mg/dL (9.0-27.0); C Reactive Protein <0.30 mg/dL (0.00-0.80); Calcium 9.6 mg/dL (8.7-10.3); Carbon Dioxide 26.7 mmol/L (21.6-31.8); Chloride 100 mmol/L (96-109); Globulin 2.7 g/dL (1.6-3.3); Glucose 105 mg/dL (70-110); Iron 179 UG/DL (50-170); Potassium 4.3 mmol/L (3.5-5.5); Sodium 138 mmol/L (135-145); T4, Free (Free Thyroxine) 1.45 ng/dL (0.80-1.80); Total Bilirubin 0.6 mg/dL (0.3-1.2); Total Iron Binding Capacity 318 UG/DL (228-460); Total Protein 7.5 g/dL (6.2-8.2)
[2024-10-09 15:30] LABS: Thyroid Peroxidase Antibodies 13.5 U/mL (0.0-33.0)
[2024-10-09 16:00] LABS: Erythrocyte Sedimentation Rate 14 mm/Hr (0-20)
== END | disposition home or self-care (01) ==
LOC: LABWHC1 10:43
PROVIDERS: ATTEND Family Medicine
DX: R53.83 Other fatigue (principal); U09.9 Post COVID-19 condition, unspecified
CPT/HCPCS: 36415; 80053; 82306; 82607; 82728; 82746; 83540; 83550; 84439; 84443; 85025; 85652; 86140; 86376; 86800